=== PATIENT | female | born 1955 | race Caucasian/White ===

== ENCOUNTER 2017-01-22 02:52 | Emergency (ER) | payer OTHER ==
[2017-01-22 02:59] VITALS: BP 170/80; PULSE 77; RESP 18; TEMP 97.3
[2017-01-22] MEDS ORDERED: FAMOTIDINE 20 MG TAB PO STA (03:18)
[2017-01-22] MEDS ORDERED: methylPREDNISolone SOD SUCCI 125 MG/2 ML VIAL IM ONE (03:18)
[2017-01-22] MEDS ORDERED: diphenhydrAMINE 50 MG/ML 1 ML VIAL IM STA (03:18)
--- NOTE | 2017-01-22 03:20 | ED ---
General Adult HPI - General Chief complaint: Allergic Reaction Stated complaint: Rash Time Seen by Provider: 01/22/17 03:02 Source: patient, family Mode of arrival: ambulatory Limitations: no limitations - History of Present Illness Initial comments: 61-year-old female patient presents to the emergency department today for evaluation of rash. Patient states before bed this evening she developed a rash to her right thigh. Patient states that she woke up around 2:30 due to generalized itching. She states that the rash had spread. She states that she has had frequent outbreaks of hives in the past and has many ALLERGIES. She is unsure exactly what is causing this rash however states that they did order a pizza from a restaurant this evening. Patient denies any new medication , lotions, soaps, detergents, or any other new substances. She denies any difficulty breathing, wheezing, or throat swelling. She denies any recent illness, sore throat, cough, congestion, or nasal drainage. Patient denies any recent fever, chills, chest pain, abdominal pain, nausea, vomiting, diarrhea, constipation, back pain, numbness, tingling, dizziness, weakness, hematuria, dysuria, urinary urgency, urinary frequency, headache, visual changes, or any other complaints. - Related Data Home Medications Medication Instructions Recorded Confirmed Empagliflozin [Jardiance] 10 mg PO DAILY 01/22/17 01/22/17 Insulin Lispro [humaLOG Kwikpen] 100 unit SQ ONCE PRN 01/22/17 01/22/17 Previous Rx's Medication Instructions Recorded predniSONE 50 mg PO DAILY #3 tablet 01/22/17 Allergies Allergy/AdvReac Type Severity Reaction Status Date / Time bupropion [From Wellbutrin] Allergy Rash/Hives Verified 01/22/17 03:05 cephalexin [From Keflex] Allergy Rash/Hives Verified 01/22/17 03:07 ciprofloxacin [From Cipro] Allergy Rash/Hives Verified 01/22/17 03:07 codeine Allergy Rash/Hives Verified 01/22/17 03:07 doxycycline Allergy Rash/Hives Verified 01/22/17 03:07 erythromycin base Allergy Rash/Hives Verified 01/22/17 03:07 Iodine and Iodide Containing Allergy Rash/Hives Verified 01/22/17 03:07 Produc latex Allergy Rash/Hives Verified 01/22/17 03:07 Penicillins Allergy Rash/Hives Verified 01/22/17 03:07 Sulfa (Sulfonamide Allergy Rash/Hives Verified 01/22/17 03:07 Antibiotics) Review of Systems ROS Statement: Those systems with pertinent positive or pertinent negative responses have been documented in the HPI. ROS Other: All systems not noted in ROS Statement are negative. Past Medical History Past Medical History: Diabetes Mellitus History of Any Multi-Drug Resistant Organisms: None Reported Past Surgical History: Appendectomy, Bowel Resection, Cholecystectomy, Hysterectomy, Tonsillectomy Past Psychological History: No Psychological Hx Reported Smoking Status: Current every day smoker Past Alcohol Use History: None Reported Past Drug Use History: None Reported General Exam Limitations: no limitations General appearance: alert, in no apparent distress, other (This is a well- developed, well-nourished adult female patient in no acute distress. Vital signs upon presentation are temperature 97.3F, pulse 77, respirations 18, blood pressure 170/80, pulse ox 97% on room air.) Eye exam: Present: normal appearance, PERRL, EOMI. Absent: scleral icterus, conjunctival injection, periorbital swelling ENT exam: Present: normal exam, normal oropharynx, mucous membranes moist Neck exam: Present: normal inspection. Absent: tenderness, meningismus, lymphadenopathy Respiratory exam: Present: normal lung sounds bilaterally. Absent: respiratory distress, wheezes, rales, rhonchi, stridor Cardiovascular Exam: Present: regular rate, normal rhythm, normal heart sounds. Absent: systolic murmur, diastolic murmur, rubs, gallop, clicks Neurological exam: Present: alert, oriented X3, CN II-XII intact Psychiatric exam: Present: normal affect, normal mood Skin exam: Present: warm, dry, intact, normal color, rash Expanded Type of lesion: Present: rash Distribution of rash: generalized Description of rash: Present: confluent, urticarial. Absent: vesicular, petechial, purpuic, crusting, discharge Course Vital Signs 01/22/17 02:54 Temperature 97.3 F L Pulse Rate 77 Respiratory 18 Rate Blood Pressure 170/80 O2 Sat by Pulse 97 Oximetry Medical Decision Making - Medical Decision Making 61-year-old female patient presents to the emergency department today for complaints of generalized itchy rash. Physical examination did reveal urticarial type rash to her arms, trunk, and legs. Lesions are nonvesicular, non-petechial, and nontender mucosal. Patient denied any use of new substances. Patient was given IM Solu-Medrol and Benadryl here in the department as well as by mouth Pepcid. She'll be discharged home with a prescription for steroids for the next 3 days. She is instructed to continue taking Benadryl every 6 hours as needed for symptom relief. She is instructed to return here immediately for any new, worsening, or concerning symptoms. She is instructed to follow-up with her primary care physician for recheck in 1-2 days. She verbalizes understanding and agrees with this plan. Disposition Clinical Impression: Urticaria Disposition: HOME SELF-CARE Condition: Good Instructions: Urticaria (ED) Additional Instructions: We did give you a steroid injection which might cause an increase in your blood sugars. Continue taking Benadryl 25-50 mg every 6 hours as needed for symptom relief. Complete steroid prescription in full. Return here immediately for any new, worsening, or concerning symptoms. Prescriptions: predniSONE 50 mg PO DAILY #3 tablet Referrals: Theodora Mccain MD [Primary Care Provider] - 1-2 days Time of Disposition: 03:20
== END 2017-01-22 03:55 | disposition home or self-care (01) ==
LOC: EC 02:52
DX: L50.0 Allergic urticaria (principal); E11.9 Type 2 diabetes mellitus without complications; F17.200 Nicotine dependence, unspecified, uncomplicated; Z79.84 Long term (current) use of oral hypoglycemic drugs; Z88.0 Allergy status to penicillin; Z88.2 Allergy status to sulfonamides; Z88.1 Allergy status to other antibiotic agents; Z88.5 Allergy status to narcotic agent; Z88.8 Allergy status to other drugs, medicaments and biological substances; Z91.040 Latex allergy status; Z91.048 Other nonmedicinal substance allergy status
CPT/HCPCS: 99283; 96372 ×2; J1200; J2930

== ENCOUNTER → 2017-06-22 | Outpatient (CLI) | payer OTHER ==
--- NOTE | 2017-06-22 10:35 | XR ---
EXAMINATION TYPE: XR ribs RT w pa chest xray DATE OF EXAM: 06/22/2017 CLINICAL HISTORY: Chest and right-sided rib pain after fall injury. TECHNIQUE: Single frontal view of the chest is obtained. A frontal and oblique images of right-sided ribs are seen. COMPARISON: Chest x-ray June 07, 2009. FINDINGS: There is chronic parenchymal change without suspicious focal air space opacity, pleural ef fusion, or pneumothorax seen. The cardiac silhouette size is within normal limits. The osseous str uctures are intact. Dedicated images of right-sided ribs show no convincing evidence of acute displaced right-sided rib f racture. Evaluation slightly suboptimal due to poor oblique positioning. Overlying soft tissue is unr emarkable. IMPRESSION: 1. No acute cardiopulmonary process. 2. No acute displaced right-sided rib fractures are clearly seen.
== END | disposition home or self-care (01) ==
LOC: RADXRYALE 09:55
PROVIDERS: ATTEND Internal Medicine
DX: R07.81 Pleurodynia (principal)